=== PATIENT | male | born 1950 | race Caucasian/White ===

== ENCOUNTER 2017-10-06 18:05 | Emergency (ER) | payer BC ==
--- NOTE | 2017-10-06 19:18 | EDM.PDOC ---
ED HPI GENERAL MEDICAL PROBLEM - General Chief Complaint: Lower Extremity Injury/Pain Stated Complaint: PT HURT LT LEG Time Seen by Provider: 10/06/17 18:18 Source of Information: Reports: Patient History Limitations: Reports: No Limitations - History of Present Illness INITIAL COMMENTS - FREE TEXT/NARRATIVE: HISTORY AND PHYSICAL: History of present illness: Patient is a 67-year-old male who is brought to the emergency room with his with complaints of lower left extremity pain. He states that he has had weight bearing to the left lower extremity (anterior pearson) over the past several hours. He does have a history of chronic leg pain, arthritis and tendinitis. Patient states he has had pain to his left lower extremity before states today's feeling is different. He denies any injury or trauma. Does have a history of type 2 diabetes but does not have any neuropathies. He denies any numbness or tingling to the affected extremity. No erythema, swelling or soft tissue discomfort with palpation. Review of systems: As per history of present illness and below otherwise all systems reviewed and negative. Past medical history: As per history of present illness and as reviewed below otherwise noncontributory. Surgical history: As per history of present illness and as reviewed below otherwise noncontributory. Social history: No reported history of drug or alcohol abuse. Family history: As per history of present illness and as reviewed below otherwise noncontributory. Physical exam: General: Developed and well-nourished 67 showed male. Alert and oriented. Nontoxic appearing and in no acute distress. HEENT: Atraumatic, normocephalic, pupils equal and reactive bilaterally, negative for conjunctival pallor or scleral icterus, mucous membranes moist, throat clear, neck supple, nontender, trachea midline. No drooling or trismus noted. No meningeal signs Lungs: Clear to auscultation, breath sounds equal bilaterally, chest nontender. Heart: S1S2, regular rate and rhythm without overt murmur Abdomen: Soft, nondistended, obese, nontender. Negative for masses or hepatosplenomegaly. Negative for costovertebral tenderness. Pelvis: Stable nontender. Genitourinary: Deferred. Rectal: Deferred. Skin: Several superficial varicose veins to lower extremities bilaterally. Intact, warm, dry. No lesions or rashes noted. Extremities: Atraumatic, moves all extremities per self without difficulty or deficits, does have discomfort to his anterior pearson when bearing weight. Strong pedal pulses bilaterally. +CMS bilaterally. He is negative for cords or calf pain. Neurovascular unremarkable. Neuro: Awake, alert, oriented. Cranial nerves II through XII unremarkable. Cerebellum unremarkable. Motor and sensory unremarkable throughout. Exam nonfocal. Notes: X-ray shows no acute findings. His skin and presentation does not appear that this is a cellulitis. The limitation available to us through the emergency room. Cannot rule out any musculature, ligament or tendon involvement. Offered him crutches to help the nonweightbearing. Her symptoms follow-up with the orthopedic provider or his primary care provider in the next couple days. Supportive care measures were reviewed and discussed. He voices understanding and is agreeable to plan of care. He denies any further questions at this time. Diagnostics: X-ray Therapeutics: Crutches Impression: Left lower extremity pain Plan: 1. Rest, ice and elevate. You may use your crutches for nonweightbearing purposes in the next several days. 2. Tylenol and/or ibuprofen as needed for pain management. 3. Follow-up with the orthopedic provider for your primary care provider in the next few days, or sooner if needed. Return to the ED as needed and as discussed. Definitive disposition and diagnosis as appropriate pending reevaluation and review of above. Left Leg Pain Score (Numeric/FACES): 8 - Related Data Allergies Allergy/AdvReac Type Severity Reaction Status Date / Time No Known Allergies Allergy Verified 10/06/17 18:19 Home Meds: Home Meds Furosemide 40 mg PO DAILY PRN 04/28/15 [History] Insulin Aspart [Novolog Flexpen] 70 units SQ DAILY 04/28/15 [History] Insulin Glarg,Human.Rec.Analog [LantUS Solostar] 40 units SUBCUT BEDTIME [History] Metoprolol Tartrate [Lopressor] 50 mg PO ONETIME 04/28/15 [History] Pantoprazole Sodium 40 mg PO DAILY 04/28/15 [History] Potassium Chloride [K-Tab ER] 20 meq PO DAILY 04/28/15 [History] Ramipril [Altace] 2.5 mg PO DAILY 04/28/15 [History] Rivaroxaban [Xarelto] 20 mg PO DAILY 04/28/15 [History] Amiodarone [Cordarone] 200 mg PO DAILY 10/06/17 [History] Glimepiride 4 mg PO BID 10/06/17 [History] buPROPion HCl [Wellbutrin Xl] 300 mg PO DAILY 10/06/17 [History] Past Medical History HEENT History: Reports: Cataract, Impaired Vision Cardiovascular History: Reports: Blood Clots/VTE/DVT, Hypertension Other Cardiovascular History: pulmonary embolis Gastrointestinal History: Reports: GERD Musculoskeletal History: Reports: Arthritis Psychiatric History: Reports: Anxiety, Depression Endocrine/Metabolic History: Reports: Diabetes, Type II Dermatologic History: Reports: Eczema - Infectious Disease History Infectious Disease History: Reports: Chicken Pox, Measles, Shingles Social & Family History - Family History Family Medical History: Noncontributory - Tobacco Use Smoking Status *Q: Never Smoker Years of Tobacco use: 10 Packs/Tins Daily: 0.1 Second Hand Smoke Exposure: Yes - Caffeine Use Caffeine Use: Reports: Coffee, Tea - Recreational Drug Use Recreational Drug Use: No Review of Systems - Review of Systems Review Of Systems: ROS reveals no pertinent complaints other than HPI. ED EXAM, GENERAL - Physical Exam Exam: See Below (See dictation) Course - Vital Signs Last Recorded V/S: Last Vital Signs Temp 97.6 F 10/06/17 18:16 Pulse 52 L 10/06/17 18:16 Resp 18 10/06/17 18:16 BP 154/74 H 10/06/17 18:16 Pulse Ox 94 L 10/06/17 18:16 - Orders/Labs/Meds Orders: Active Orders 24 hr Category Date Time Status Tibia Fibula Lt [CR] Stat Exams 10/06/17 18:37 Ordered Departure - Departure Time of Disposition: 19:35 Disposition: Home, Self-Care 01 Clinical Impression: Left leg pain - Discharge Information Referrals: PCP,None [Primary Care Provider] - Forms: ED Department Discharge Additional Instructions: The following information is given to patients seen in the emergency department who are being discharged to home. This information is to outline your options for follow-up care. We provide all patients seen in our emergency department with a follow-up referral. The need for follow-up, as well as the timing and circumstances, are variable depending upon the specifics of your emergency department visit. If you don't have a primary care physician on staff, we will provide you with a referral. We always advise you to contact your personal physician following an emergency department visit to inform them of the circumstance of the visit and for follow-up with them and/or the need for any referrals to a consulting specialist. The emergency department will also refer you to a specialist when appropriate. This referral assures that you have the opportunity for follow-up care with a specialist. All of these measure are taken in an effort to provide you with optimal care, which includes your follow-up. Under all circumstances we always encourage you to contact your private physician who remains a resource for coordinating your care. When calling for follow-up care, please make the office aware that this follow-up is from your recent emergency room visit. If for any reason you are refused follow-up, please contact the [facility] Emergency Department at and asked to speak to the emergency department charge nurse. [facility] [address] [place] [id number] [facility] - [facility] [address] [place] [address], [address] [place] [address] 1. Rest, ice and elevate. You may use your crutches for nonweightbearing purposes over the next several days. 2. Tylenol and/or ibuprofen as needed for pain management. 3. Follow-up with the orthopedic provider for your primary care provider in the next few days, or sooner if needed. Return to the ED as needed and as discussed. - My Orders Last 24 Hours: My Active Orders 10/06/17 18:37 Tibia Fibula Lt [CR] Stat - Assessment/Plan Last 24 Hours: My Active Orders 10/06/17 18:37 Tibia Fibula Lt [CR] Stat
[2017-10-06 20:24] VITALS: BP 137/64
--- NOTE | 2017-10-07 14:54 | CR ---
EXAM DATE: 10/06/17 PATIENT'S AGE: 67 Patient: GRACIE ALVARADO Facility: [place], [place] Site . Site : 1950 Study: XRay Extremity Left tib/fib [id number] 7:10:33 PM Ordering Physician: Doctor Menjivar Final Report: INDICATION: Pain with weight-bearing, no history of trauma. TECHNIQUE: Two views left tibia and fibula COMPARISON: None FINDINGS: Bones: Alignment is normal. No fractures. Dorsal and plantar calcaneal spurs. Joint spaces: Narrowing and marginal osteophytes involving the medial compartment of the knee. Degenerative changes with narrowing patellofemoral compartment. Soft tissues: Unremarkable. IMPRESSION: Narrowing and marginal osteophytes involving the medial and patellofemoral compartments of the knee. Dictated by Sharan Corona MD @ 10/06/2017 7:32:22 PM Dictated by: Sharan Corona MD @ 10/06/2017 19:32:26 (Electronic Signature) Report Signed by Proxy. ESTEBAN
== END 2017-10-06 20:00 | disposition home or self-care (01) ==
LOC: MW.ED 18:05
DX: I83.93 Asymptomatic varicose veins of bilateral lower extremities (principal); E11.9 Type 2 diabetes mellitus without complications; I10 Essential (primary) hypertension; Z79.4 Long term (current) use of insulin; Z79.899 Other long term (current) drug therapy; Z77.22 Contact with and (suspected) exposure to environmental tobacco smoke (acute) (chronic)
CPT/HCPCS: 73590-26-LT; 73590-LT; 99283

== ENCOUNTER 2019-02-24 14:33 | Emergency (ER) | payer MEDICARE, BC ==
[2019-02-24 14:55] VITALS: BP 112/70; PULSE 76
[2019-02-24] MEDS ORDERED: cefTRIAXone 1 GM Vial IM ONE (15:02)
[2019-02-24] MEDS ORDERED: Sulfamethoxazole/Trimethoprim 800-160 MG Tab PO ONE (15:02)
[2019-02-24] MEDS ORDERED: Bacitracin Oint 1 GM U/D Packet TOP ONE (15:14)
[2019-02-24] MEDS ORDERED: Lidocaine 1% 4 ML ONE (15:16)
--- NOTE | 2019-02-24 15:17 | EDM.PDOC ---
ED HPI GENERAL MEDICAL PROBLEM - General Chief Complaint: Skin Complaint Stated Complaint: LEFT FOOT INFECTION Time Seen by Provider: 02/24/19 15:12 Source of Information: Reports: Patient - History of Present Illness INITIAL COMMENTS - FREE TEXT/NARRATIVE: HISTORY AND PHYSICAL: History of present illness: [Patient presents with multiple small abscesses he has one on his pubic area which has some redness and induration approximately the size of a quarter he has been applying pressure and draining some blood and exudate from the lesion, he has a second lesion on the anterior left thigh similar in description was able to express a very scant amount of exudate one or 2 drops as he has been draining at home no fever nausea vomiting chills sweats As his note describes a foot lesion however there is no foot lesion associated ] Review of systems: As per history of present illness and below otherwise all systems reviewed and negative. Past medical history: As per history of present illness and as reviewed below otherwise noncontributory. Surgical history: As per history of present illness and as reviewed below otherwise noncontributory. Social history: No reported history of drug or alcohol abuse. Family history: As per history of present illness and as reviewed below otherwise noncontributory. Physical exam: HEENT: Atraumatic, normocephalic, pupils reactive, negative for conjunctival pallor or scleral icterus, mucous membranes moist, throat clear, neck supple, nontender, trachea midline. Lungs: Clear to auscultation, breath sounds equal bilaterally, chest nontender. Heart: S1S2, regular, negative for clicks, rubs, or JVD. Abdomen: Soft, nondistended, nontender. Negative for masses or hepatosplenomegaly. Negative for costovertebral tenderness. Pelvis: Stable nontender. Genitourinary: Deferred. Rectal: Deferred. Extremities: Atraumatic, negative for cords or calf pain. Neurovascular unremarkable. Neuro: Awake, alert, oriented. Cranial nerves II through XII unremarkable. Cerebellum unremarkable. Motor and sensory unremarkable throughout. Exam nonfocal. Skin as per history of present illness otherwise unremarkable Diagnostics: [ wound culture left anterior thigh ] Therapeutics: [ Rocephin and Bactrim Bactrim double strength by mouth twice a day #20 no refill continue warm compress ] Impression: [ cellulitis with abscess,-auto drainage performed at home] Definitive disposition and diagnosis as appropriate pending reevaluation and review of above. - Related Data Allergies Allergy/AdvReac Type Severity Reaction Status Date / Time No Known Allergies Allergy Verified 10/06/17 18:19 Home Meds: Home Meds Insulin Aspart [Novolog Flexpen] 70 units SQ DAILY 04/28/15 [History] Insulin Glarg,Human.Rec.Analog [LantUS Solostar] 40 units SUBCUT BEDTIME [History] Metoprolol Tartrate [Lopressor] 50 mg PO ONETIME 04/28/15 [History] Pantoprazole Sodium 40 mg PO DAILY 04/28/15 [History] Ramipril [Altace] 2.5 mg PO DAILY 04/28/15 [History] Rivaroxaban [Xarelto] 20 mg PO DAILY 04/28/15 [History] Amiodarone [Cordarone] 200 mg PO DAILY 10/06/17 [History] buPROPion HCl [Wellbutrin Xl] 300 mg PO DAILY 10/06/17 [History] Acetaminophen [Tylenol Extra Strength] 1 g PO DAILY 02/24/19 [History] Empagliflozin [Jardiance] 25 mg PO DAILY 02/24/19 [History] Rosuvastatin [Crestor] 10 mg PO DAILY 02/24/19 [History] Semaglutide [Ozempic] 1 mg WEEKLY 02/24/19 [History] traMADol [Ultram] 50 mg PO DAILY 02/24/19 [History] Past Medical History HEENT History: Reports: Cataract, Impaired Vision Cardiovascular History: Reports: Blood Clots/VTE/DVT, Hypertension Other Cardiovascular History: pulmonary embolis Gastrointestinal History: Reports: GERD Musculoskeletal History: Reports: Arthritis Other Musculoskeletal History: knee pain Psychiatric History: Reports: Anxiety, Depression Endocrine/Metabolic History: Reports: Diabetes, Type II Dermatologic History: Reports: Eczema - Infectious Disease History Infectious Disease History: Reports: Chicken Pox, Measles, Shingles Social & Family History - Family History Family Medical History: Noncontributory - Tobacco Use Smoking Status *Q: Never Smoker - Caffeine Use Caffeine Use: Reports: Coffee, Tea - Recreational Drug Use Recreational Drug Use: No ED ROS GENERAL - Review of Systems Review Of Systems: See Below ED EXAM, SKIN/RASH Exam: See Below Course - Vital Signs Last Recorded V/S: Last Vital Signs Temp 96.9 F 02/24/19 14:53 Pulse 76 02/24/19 14:53 Resp 18 02/24/19 14:53 BP 112/70 02/24/19 14:53 Pulse Ox 96 02/24/19 14:53 - Orders/Labs/Meds Meds: Medications Discontinued Medications Generic Name Dose Route Start Last Admin Trade Name Nel PRN Reason Stop Dose Admin Ceftriaxone Sodium 1 gm 02/24/19 15:02 Rocephin IM 02/24/19 15:03 ONETIME ONE Trimethoprim/Sulfamethoxazole 1 tab 02/24/19 15:02 Septra Ds PO 02/24/19 15:03 ONETIME ONE Departure - Departure Time of Disposition: 15:15 Disposition: Home, Self-Care 01 Condition: Good Clinical Impression: Abscess, Cellulitis - Discharge Information Referrals: Asael Myers MD [Primary Care Provider] - Additional Instructions: Medication as prescribed Return if symptoms persist or worsen despite treatment continue with warm compress 2-3 times daily with each lesion follow with primary care in one week for recheck maintain tight glucose control [facility] - Primary Care [address] [place] [id number] The following information is given to patients seen in the emergency department who are being discharged to home. This information is to outline your options for follow-up care. We provide all patients seen in our emergency department with a follow-up referral. The need for follow-up, as well as the timing and circumstances, are variable depending upon the specifics of your emergency department visit. If you don't have a primary care physician on staff, we will provide you with a referral. We always advise you to contact your personal physician following an emergency department visit to inform them of the circumstance of the visit and for follow-up with them and/or the need for any referrals to a consulting specialist. The emergency department will also refer you to a specialist when appropriate. This referral assures that you have the opportunity for follow-up care with a specialist. All of these measure are taken in an effort to provide you with optimal care, which includes your follow-up. Under all circumstances we always encourage you to contact your private physician who remains a resource for coordinating your care. When calling for follow-up care, please make the office aware that this follow-up is from your recent emergency room visit. If for any reason you are refused follow-up, please contact the [facility] emergency department at and asked to speak to the emergency department charge nurse.
== END 2019-02-24 15:50 | disposition home or self-care (01) ==
LOC: MW.ED 14:33 → EEVIPCON 14:33 → MW.ED 15:50
DX: N49.9 Inflammatory disorder of unspecified male genital organ (principal); L02.415 Cutaneous abscess of right lower limb; L03.116 Cellulitis of left lower limb; E11.9 Type 2 diabetes mellitus without complications; I10 Essential (primary) hypertension; K21.9 Gastro-esophageal reflux disease without esophagitis; F41.9 Anxiety disorder, unspecified; F32.9 Major depressive disorder, single episode, unspecified; Z79.4 Long term (current) use of insulin; Z79.899 Other long term (current) drug therapy
CPT/HCPCS: 87070; 96372; 99283; A9270; J0696; 87077; 87186

== ENCOUNTER 2019-03-05 15:32 | Emergency (ER) | payer MEDICARE, BC ==
[2019-03-05 15:53] VITALS: BP 112/55; PULSE 52
--- NOTE | 2019-03-05 16:33 | EDM.PDOC ---
ED HPI GENERAL MEDICAL PROBLEM - General Chief Complaint: Skin Complaint Stated Complaint: LEFT FOOT Time Seen by Provider: 03/05/19 16:28 Source of Information: Reports: Patient - History of Present Illness INITIAL COMMENTS - FREE TEXT/NARRATIVE: HISTORY AND PHYSICAL: History of present illness: Patient presents for abscess type lesions, have seen him approximately 10 days ago for similar His note again says left foot lesion however he does not have any problem with his left foot his left thigh is involved with a small quarter-sized abscess was drained there is persistent induration however no fluctuance He does have an area in the left groin/pubic region that is also drained there is continued induration however size is decreasing his diabetic and have him follow-up with general surgery to evaluate this lesion and follow As no fever nausea vomiting chills sweats ] Review of systems: As per history of present illness and below otherwise all systems reviewed and negative. Past medical history: As per history of present illness and as reviewed below otherwise noncontributory. Surgical history: As per history of present illness and as reviewed below otherwise noncontributory. Social history: No reported history of drug or alcohol abuse. Family history: As per history of present illness and as reviewed below otherwise noncontributory. Physical exam: HEENT: Atraumatic, normocephalic, pupils reactive, negative for conjunctival pallor or scleral icterus, mucous membranes moist, throat clear, neck supple, nontender, trachea midline. Lungs: Clear to auscultation, breath sounds equal bilaterally, chest nontender. Heart: S1S2, regular, negative for clicks, rubs, or JVD. Abdomen: Soft, nondistended, nontender. Negative for masses or hepatosplenomegaly. Negative for costovertebral tenderness. Pelvis: Stable nontender. Genitourinary: Deferred. Rectal: Deferred. Extremities: Atraumatic, negative for cords or calf pain. Neurovascular unremarkable. Neuro: Awake, alert, oriented. Cranial nerves II through XII unremarkable. Cerebellum unremarkable. Motor and sensory unremarkable throughout. Exam nonfocal. Diagnostics: [Clinical Staph aureus was grown out from previous culture ] Therapeutics: [ Bactrim double strength #20 Follow-up with general surgery ER referral provided ] Impression: [ abscess post drainage Persistent cellulitis scant exudates and induration persists] Definitive disposition and diagnosis as appropriate pending reevaluation and review of above. - Related Data Allergies Allergy/AdvReac Type Severity Reaction Status Date / Time No Known Allergies Allergy Verified 10/06/17 18:19 Home Meds: Home Meds Insulin Aspart [Novolog Flexpen] 13 units SQ DAILY 04/28/15 [History] Insulin Glarg,Human.Rec.Analog [LantUS Solostar] 51 units SUBCUT BEDTIME [History] Metoprolol Tartrate [Lopressor] 50 mg PO ONETIME 04/28/15 [History] Pantoprazole Sodium 40 mg PO DAILY 04/28/15 [History] Ramipril [Altace] 2.5 mg PO DAILY 04/28/15 [History] Rivaroxaban [Xarelto] 20 mg PO DAILY 04/28/15 [History] Amiodarone [Cordarone] 100 mg PO DAILY 10/06/17 [History] buPROPion HCl [Wellbutrin Xl] 300 mg PO DAILY 10/06/17 [History] Acetaminophen [Tylenol Extra Strength] 1 g PO DAILY 02/24/19 [History] Empagliflozin [Jardiance] 25 mg PO DAILY 02/24/19 [History] Rosuvastatin [Crestor] 10 mg PO DAILY 02/24/19 [History] Semaglutide [Ozempic] 1 mg WEEKLY 02/24/19 [History] traMADol [Ultram] 50 mg PO DAILY 02/24/19 [History] Sulfamethoxazole/Trimethoprim [Bactrim Ds Tablet] 03/05/19 [History] Past Medical History HEENT History: Reports: Cataract, Impaired Vision Cardiovascular History: Reports: Blood Clots/VTE/DVT, Hypertension Other Cardiovascular History: pulmonary embolis Gastrointestinal History: Reports: GERD Musculoskeletal History: Reports: Arthritis Other Musculoskeletal History: knee pain Psychiatric History: Reports: Anxiety, Depression Endocrine/Metabolic History: Reports: Diabetes, Type II Dermatologic History: Reports: Eczema - Infectious Disease History Infectious Disease History: Reports: Chicken Pox, Measles, Shingles Social & Family History - Family History Family Medical History: Noncontributory - Tobacco Use Smoking Status *Q: Former Smoker Used Tobacco, but Quit: Yes Month/Year Tobacco Last Used: 06/2014 - Caffeine Use Caffeine Use: Reports: Coffee, Tea - Recreational Drug Use Recreational Drug Use: No ED ROS GENERAL - Review of Systems Review Of Systems: See Below ED EXAM, SKIN/RASH Exam: See Below Course - Vital Signs Last Recorded V/S: Last Vital Signs Temp 98 F 03/05/19 15:50 Pulse 52 L 03/05/19 15:50 Resp 18 03/05/19 15:50 BP 112/55 L 03/05/19 15:50 Pulse Ox 96 03/05/19 15:50 Departure - Departure Time of Disposition: 16:33 Disposition: Home, Self-Care 01 Condition: Good Clinical Impression: Cellulitis - Discharge Information Referrals: Asael Myers MD [Primary Care Provider] - Additional Instructions: Medication as prescribed Return if symptoms persist or worsen or fever nausea vomiting chills sweats should develop Follow-up with general surgery, ER referral for next Tuesday [facility] [address], [address] [place] [address] The following information is given to patients seen in the emergency department who are being discharged to home. This information is to outline your options for follow-up care. We provide all patients seen in our emergency department with a follow-up referral. The need for follow-up, as well as the timing and circumstances, are variable depending upon the specifics of your emergency department visit. If you don't have a primary care physician on staff, we will provide you with a referral. We always advise you to contact your personal physician following an emergency department visit to inform them of the circumstance of the visit and for follow-up with them and/or the need for any referrals to a consulting specialist. The emergency department will also refer you to a specialist when appropriate. This referral assures that you have the opportunity for follow-up care with a specialist. All of these measure are taken in an effort to provide you with optimal care, which includes your follow-up. Under all circumstances we always encourage you to contact your private physician who remains a resource for coordinating your care. When calling for follow-up care, please make the office aware that this follow-up is from your recent emergency room visit. If for any reason you are refused follow-up, please contact the [facility] emergency department at and asked to speak to the emergency department charge nurse.
== END 2019-03-05 16:43 | disposition home or self-care (01) ==
LOC: MW.ED 15:32
DX: L02.416 Cutaneous abscess of left lower limb (principal); L02.214 Cutaneous abscess of groin; L03.116 Cellulitis of left lower limb; L03.314 Cellulitis of groin; I10 Essential (primary) hypertension; E11.9 Type 2 diabetes mellitus without complications; K21.9 Gastro-esophageal reflux disease without esophagitis; F41.9 Anxiety disorder, unspecified; F32.9 Major depressive disorder, single episode, unspecified; M19.90 Unspecified osteoarthritis, unspecified site; Z86.718 Personal history of other venous thrombosis and embolism; Z87.891 Personal history of nicotine dependence; Z79.4 Long term (current) use of insulin; Z79.899 Other long term (current) drug therapy
CPT/HCPCS: 99282

== ENCOUNTER 2020-03-05 05:49 | Emergency (ER) | payer MEDICARE, BC ==
--- NOTE | 2020-03-05 06:07 | EDM.PDOC ---
<Jimmy Garcia - Last Filed: 03/05/20 06:03> ED HPI GENERAL MEDICAL PROBLEM - General Chief Complaint: Abdominal Pain Stated Complaint: LOWER ABDOMINAL PAIN Time Seen by Provider: 03/05/20 06:00 - History of Present Illness INITIAL COMMENTS - FREE TEXT/NARRATIVE: HISTORY AND PHYSICAL: History of present illness: This 69-year-old male presents emergency department without a previous history of abdominal surgery complaining of generalized abdominal pain that he rates as moderate to severe. He states that it first began in the left lower quadrant and now feels more on the right upper quadrant. Denies any nausea or vomiting. No hematemesis or hematochezia. No diarrhea. Does have a very strong hard bowel movements and some constipation. Denies any other signs or symptoms. No other modifying, aggravating or alleviating Review of systems: A 10-point review of systems, other than pertinent positives and negatives as stated per HPI, is otherwise negative. Past medical history: As per history of present illness and as reviewed below otherwise noncontributory. Surgical history: As per history of present illness and as reviewed below otherwise noncontributory. Social history: No reported history of drug or alcohol abuse. Family history: As per history of present illness and as reviewed below otherwise noncontributory. Physical exam: VITAL SIGNS: Reviewed. GENERAL: In no apparent distress. HEAD: No signs of head trauma. EYES: Pupils are equal. Extraocular motions intact. EARS: Hearing grossly intact. MOUTH: Oropharynx is normal. NECK: No adenopathy, no JVD. CHEST: Chest with clear breath sounds bilaterally. No wheezes, rales, or rhonchi. CARDIAC: Regular rate and rhythm. Normal S1 and S2, without murmurs, gallops, or rubs. VASCULAR: Peripheral pulses normal and equal in all extremities. ABDOMEN: Soft, complains of diffuse tenderness that is mild, no rebound or guarding, no pulsatile masses or other masses noted. MUSCULOSKELETAL: Good range of motion of all major joints. Extremities without clubbing, cyanosis or edema. NEUROLOGIC EXAM: Alert and oriented x 3. No focal sensory or motor deficits. Speech normal. Follows commands. PSYCHIATRIC: Mood normal. SKIN: No rash or lesions. Initial Differential Diagnosis & Plan: The differential diagnosis would include appendicitis, cholecystitis, pyelonephritis, pancreatitis, mesenteric infarction, diverticulitis, small bowel obstruction, volvulus, and ACS. Given the presentation I will obtain labs, CT of the abdomen pelvis, and reevaluate. Definitive disposition and diagnosis as appropriate pending reevaluation and review of above. - Related Data Allergies Allergy/AdvReac Type Severity Reaction Status Date / Time No Known Allergies Allergy Verified 03/05/20 06:01 Home Meds: Home Meds Insulin Aspart [Novolog Flexpen] 50 units SQ DAILY 04/28/15 [History] Insulin Glarg,Human.Rec.Analog [LantUS Solostar] 49 units SUBCUT BEDTIME 04/28/15 [History] Metoprolol Tartrate [Lopressor] 25 mg PO ONETIME 04/28/15 [History] Pantoprazole Sodium 40 mg PO DAILY 04/28/15 [History] Ramipril [Altace] 2.5 mg PO DAILY 04/28/15 [History] Rivaroxaban [Xarelto] 20 mg PO DAILY 04/28/15 [History] Amiodarone [Cordarone] 100 mg PO DAILY 10/06/17 [History] buPROPion HCL [Wellbutrin Xl] 300 mg PO DAILY 10/06/17 [History] Empagliflozin [Jardiance] 25 mg PO DAILY 02/24/19 [History] Semaglutide [Ozempic] 1 mg WEEKLY 02/24/19 [History] traMADol [Ultram] 50 mg PO DAILY PRN 02/24/19 [History] Acetaminophen [Tylenol] 1,000 mg PO DAILY PRN 03/05/20 [History] Cholecalciferol (Vitamin D3) [Vitamin D3] 1,000 unit PO DAILY 03/05/20 [History] Furosemide [Lasix] 40 mg PO DAILY 03/05/20 [History] Latanoprost [Xalatan] 1 drop EYEBOTH BEDTIME 03/05/20 [History] Potassium Citrate [Potassium Citrate ER] 20 meq PO DAILY 03/05/20 [History] Pravastatin [Pravachol] 40 mg PO DAILY 03/05/20 [History] Prednisolone Acetate/Pf [Prednisolone Acet 1% Eye Drop] 1 drop EARBOTH DAILY 03/05/20 [History] Ramipril [Altace] 2.5 mg PO DAILY 03/05/20 [History] polyethylene glycoL 3350 [MiraLAX] 17 gm PO DAILY #238 g 03/05/20 [Rx] Past Medical History HEENT History: Reports: Cataract, Impaired Vision Cardiovascular History: Reports: Blood Clots/VTE/DVT, Hypertension Other Cardiovascular History: pulmonary embolis Gastrointestinal History: Reports: GERD Musculoskeletal History: Reports: Arthritis Other Musculoskeletal History: knee pain Psychiatric History: Reports: Anxiety, Depression Endocrine/Metabolic History: Reports: Diabetes, Type II Dermatologic History: Reports: Eczema - Infectious Disease History Infectious Disease History: Reports: Chicken Pox, Measles, Shingles Social & Family History - Family History Family Medical History: Noncontributory - Caffeine Use Caffeine Use: Reports: Coffee, Tea Departure - Departure Disposition: Home, Self-Care 01 Clinical Impression: Constipation Qualifiers: Constipation type: unspecified constipation type Qualified Code(s): K59.00 - Constipation, unspecified - Discharge Information Prescriptions: polyethylene glycoL 3350 [MiraLAX] 17 gm PO DAILY #238 g Instructions: Constipation, Adult Referrals: Asael Myers MD [Primary Care Provider] - Forms: ED Department Discharge Additional Instructions: The following information is given to patients seen in the emergency department who are being discharged to home. This information is to outline your options for follow-up care. We provide all patients seen in our emergency department with a follow-up referral. The need for follow-up, as well as the timing and circumstances, are variable depending upon the specifics of your emergency department visit. If you don't have a primary care physician on staff, we will provide you with a referral. We always advise you to contact your personal physician following an emergency department visit to inform them of the circumstance of the visit and for follow-up with them and/or the need for any referrals to a consulting specialist. The emergency department will also refer you to a specialist when appropriate. This referral assures that you have the opportunity for follow-up care with a specialist. All of these measure are taken in an effort to provide you with optimal care, which includes your follow-up. Under all circumstances we always encourage you to contact your private physician who remains a resource for coordinating your care. When calling for follow-up care, please make the office aware that this follow-up is from your recent emergency room visit. If for any reason you are refused follow-up, please contact the [facility] Emergency Department at and asked to speak to the emergency department charge nurse. Please follow up with your primary care physician. If you do not have a primary care physician, see below: [facility] [address] [place] [address] [facility] [address] [place], [place] [id number] <Bryan Corona - Last Filed: 03/05/20 07:31> ED ROS GENERAL - Review of Systems Review Of Systems: See Below ED EXAM, GI/ABD - Physical Exam Exam: See Below Course - Vital Signs Last Recorded V/S: Last Vital Signs Temp 97.6 F 03/05/20 06:00 Pulse 60 03/05/20 06:52 Resp 16 03/05/20 06:52 BP 114/72 03/05/20 06:52 Pulse Ox 95 03/05/20 06:52 - Orders/Labs/Meds Labs: Laboratory Tests 03/05/20 03/05/20 03/05/20 Range/Units 06:02 06:05 06:05 WBC 10.47 (4.0-11.0) K/uL RBC 5.01 (4.50-5.90) M/uL Hgb 16.4 (13.0-17.0) g/dL Hct 48.5 (38.0-50.0) % MCV 96.8 (80.0-98.0) fL MCH 32.7 H (27.0-32.0) pg MCHC 33.8 (31.0-37.0) g/dL RDW Std Deviation 48.3 (28.0-62.0) fl RDW Coeff of Cindi 14 (11.0-15.0) % Plt Count 198 (150-400) K/uL MPV 11.50 (7.40-12.00) fL Neut % (Auto) 64.4 (48.0-80.0) % Lymph % (Auto) 16.6 (16.0-40.0) % [place] % (Auto) 14.2 (0.0-15.0) % Eos % (Auto) 4.3 (0.0-7.0) % Baso % (Auto) 0.5 (0.0-1.5) % Neut # (Auto) 6.7 H (1.4-5.7) K/uL Lymph # (Auto) 1.7 (0.6-2.4) K/uL [place] # (Auto) 1.5 H (0.0-0.8) K/uL Eos # (Auto) 0.5 (0.0-0.7) K/uL Baso # (Auto) 0.1 (0.0-0.1) K/uL Nucleated RBC % 0.0 /100WBC Nucleated RBCs # 0 K/uL Sodium 137 (136-148) mmol/L Potassium 4.8 (3.5-5.1) mmol/L Chloride 102 (98-107) mmol/L Carbon Dioxide 28.1 (21.0-32.0) mmol/L BUN 20 H (7.0-18.0) mg/dL Creatinine 0.8 (0.8-1.3) mg/dL Est Cr Clr Drug Dosing 97.00 mL/min Estimated GFR (MDRD) > 60.0 ml/min Glucose 78 (74-106) mg/dL Calcium 8.6 (8.5-10.1) mg/dL Total Bilirubin 1.0 (0.2-1.0) mg/dL AST 45 H (15-37) IU/L ALT 44 (14-63) IU/L Alkaline Phosphatase 105 (46-116) U/L Troponin I < 0.050 (0.000-0.056) ng/mL Total Protein 7.9 (6.4-8.2) g/dL Albumin 3.4 (3.4-5.0) g/dL Globulin 4.5 H (2.6-4.0) g/dL Albumin/Globulin Ratio 0.8 L (0.9-1.6) Lipase 89 (73-393) U/L Urine Color YELLOW Urine Appearance CLEAR Urine pH 6.0 (5.0-8.0) Ur Specific [place] 1.020 (1.001-1.035) Urine Protein NEGATIVE (NEGATIVE) mg/dL Urine Glucose (UA) >=1000 (NEGATIVE) mg/dL Urine Ketones NEGATIVE (NEGATIVE) mg/dL Urine Occult Blood NEGATIVE (NEGATIVE) Urine Nitrite NEGATIVE (NEGATIVE) Urine Bilirubin NEGATIVE (NEGATIVE) Urine Urobilinogen 0.2 (<2.0) EU/dL Ur Leukocyte Esterase NEGATIVE (NEGATIVE) - Re-Assessments/Exams Free Text/Narrative Re-Assessment/Exam: 03/05/20 07:00 Care transitioned from night-team ED physician Dr. Peña pending CT imaging results. 03/05/20 07:25 CT unremarkable for emergent intraabdominal pathology; is notable for heavy colonic stool burden. Will d/c with bowel regimen and PMD f/u. Departure - Departure Time of Disposition: 07:27 Condition: Good Sepsis Event Note (ED) - Focused Exam Vital Signs: Vital Signs Temp Pulse Resp BP Pulse Ox 03/05/20 06:52 60 16 114/72 95 03/05/20 06:00 97.6 F 67 18 128/70 99
[2020-03-05 06:38] LABS: BLOOD UREA NITROGEN,BUN 20 mg/dL (7.0-18.0); CARBON DIOXIDE,CO2 28.1 mmol/L (21.0-32.0); CHLORIDE,CL 102 mmol/L (98-107); GLUCOSE RANDOM 78 mg/dL (74-106); LIPASE 89 U/L (73-393); POTASSIUM,K 4.8 mmol/L (3.5-5.1); SODIUM,NA 137 mmol/L (136-148)
--- NOTE | 2020-03-05 07:24 | CT ---
INDICATION: Abdominal pain. Initially on left side but now on the right side. TECHNIQUE: CT of the abdomen and pelvis without intravenous contrast. Coronal and sagittal reconstructions. COMPARISON: None. FINDINGS: The unenhanced liver, gallbladder, pancreas, and adrenal glands are normal in appearance. Tiny amount of cholelithiasis without evidence of gallbladder inflammation. No hydronephrosis. No urinary calculi. The bladder is normal in appearance. Mildly enlarged prostate. Bilateral fat containing inguinal hernias. No bowel dilation. Moderate amount of stool in the cecum and ascending colon. Negative appendix. No intraperitoneal free air or fluid. Mild vascular calcifications. No lymphadenopathy. Mild degenerative changes of the spine. Mild retrolisthesis of L5 on S1. There is soft tissue thickening anterior to the T9 and T10 vertebral bodies (series 201, image 12 and series 204, image 76). Findings are of uncertain significance but could represent discitis. There is no associated osseous abnormality other than hypertrophic changes. Trace right pleural effusion. Mild bibasilar atelectasis. IMPRESSION: 1. Soft tissue thickening anterior to the T9 and T10 vertebral bodies is of uncertain significance but could represent discitis. Correlate for any tenderness in this region. 2. No other acute findings in the abdomen or pelvis on this noncontrast exam. 3. Moderate amount of stool in the cecum and ascending colon. 4. Trace right pleural effusion. Please note that all CT scans at this facility use dose modulation, iterative reconstruction, and/or weight-based dosing when appropriate to reduce radiation dose to as low as reasonably achievable. Dictated by Kerry Braswell MD @ Mar 05 2020 7:11AM Signed by Dr. Kerry Braswell @ Mar 05 2020 7:23AM
[2020-03-05 07:45] VITALS: BP 105/61; PULSE 56
== END 2020-03-05 07:40 | disposition home or self-care (01) ==
LOC: MW.ED 05:49
DX: K59.00 Constipation, unspecified (principal); I10 Essential (primary) hypertension; K21.9 Gastro-esophageal reflux disease without esophagitis; E11.9 Type 2 diabetes mellitus without complications; F41.9 Anxiety disorder, unspecified; F32.9 Major depressive disorder, single episode, unspecified; Z79.4 Long term (current) use of insulin; Z79.899 Other long term (current) drug therapy; Z86.711 Personal history of pulmonary embolism; Z86.718 Personal history of other venous thrombosis and embolism; Z79.01 Long term (current) use of anticoagulants
CPT/HCPCS: 36415; 74176; 74176-26; 80053; 81003; 83690; 84484; 85025; 99284-25

== ENCOUNTER 2020-03-09 13:12 | Emergency (ER) | payer MEDICARE, BC ==
--- NOTE | 2020-03-09 13:40 | EDM.PDOC ---
ED HPI GENERAL MEDICAL PROBLEM - General Chief Complaint: ENT Problem Stated Complaint: NASAL INFECTION Time Seen by Provider: 03/09/20 13:14 Source of Information: Reports: Patient History Limitations: Reports: No Limitations - History of Present Illness INITIAL COMMENTS - FREE TEXT/NARRATIVE: Patient presents with redness around his nose which is typical of his MRSA infections. Started yesterday. Mildly painful. No discharge or purulent drainage. No fevers or systemic symptoms. - Related Data Allergies Allergy/AdvReac Type Severity Reaction Status Date / Time No Known Allergies Allergy Verified 03/09/20 13:33 Home Meds: Home Meds Insulin Aspart [Novolog Flexpen] 50 units SQ DAILY 04/28/15 [History] Insulin Glarg,Human.Rec.Analog [LantUS Solostar] 49 units SUBCUT BEDTIME 04/28/15 [History] Metoprolol Tartrate [Lopressor] 25 mg PO ONETIME 04/28/15 [History] Pantoprazole Sodium 40 mg PO DAILY 04/28/15 [History] Ramipril [Altace] 2.5 mg PO DAILY 04/28/15 [History] Rivaroxaban [Xarelto] 20 mg PO DAILY 04/28/15 [History] Amiodarone [Cordarone] 100 mg PO DAILY 10/06/17 [History] buPROPion HCL [Wellbutrin Xl] 300 mg PO DAILY 10/06/17 [History] Empagliflozin [Jardiance] 25 mg PO DAILY 02/24/19 [History] Semaglutide [Ozempic] 1 mg WEEKLY 02/24/19 [History] traMADol [Ultram] 50 mg PO DAILY PRN 02/24/19 [History] Acetaminophen [Tylenol] 1,000 mg PO DAILY PRN 03/05/20 [History] Cholecalciferol (Vitamin D3) [Vitamin D3] 1,000 unit PO DAILY 03/05/20 [History] Furosemide [Lasix] 40 mg PO DAILY 03/05/20 [History] Latanoprost [Xalatan] 1 drop EYEBOTH BEDTIME 03/05/20 [History] Potassium Citrate [Potassium Citrate ER] 20 meq PO DAILY 03/05/20 [History] Pravastatin [Pravachol] 40 mg PO DAILY 03/05/20 [History] Prednisolone Acetate/Pf [Prednisolone Acet 1% Eye Drop] 1 drop EARBOTH DAILY 03/05/20 [History] Ramipril [Altace] 2.5 mg PO DAILY 03/05/20 [History] polyethylene glycoL 3350 [MiraLAX] 17 gm PO DAILY #238 g 03/05/20 [Rx] Sulfamethoxazole/Trimethoprim [Bactrim Ds Tablet] 1 each PO BID 14 Days #28 tablet 03/09/20 [Rx] Past Medical History HEENT History: Reports: Cataract, Impaired Vision Cardiovascular History: Reports: Blood Clots/VTE/DVT, Hypertension Other Cardiovascular History: pulmonary embolis Respiratory History: Reports: None Gastrointestinal History: Reports: GERD Genitourinary History: Reports: None Musculoskeletal History: Reports: Arthritis Other Musculoskeletal History: knee pain Neurological History: Reports: None Psychiatric History: Reports: Anxiety, Depression Endocrine/Metabolic History: Reports: Diabetes, Type II Insulin Pump Model and Intensivist: None Hematologic History: Reports: None Immunologic History: Reports: None Oncologic (Cancer) History: Reports: None Dermatologic History: Reports: Eczema - Infectious Disease History Infectious Disease History: Reports: Chicken Pox, MRSA, Shingles - Past Surgical History Head Surgeries/Procedures: Reports: None Social & Family History - Family History Family Medical History: Noncontributory - Caffeine Use Caffeine Use: Reports: Coffee, Tea ED ROS GENERAL - Review of Systems Review Of Systems: Comprehensive ROS is negative, except as noted in HPI. ED EXAM, GENERAL - Physical Exam Exam: See Below Exam Limited By: No Limitations General Appearance: Alert, WD/WN, No Apparent Distress Ears: Normal External Exam Nose: Normal Mucosa, No Blood, Other (mild erythema/warmth and TTP) Head: Atraumatic, Normocephalic Neck: Normal Inspection Respiratory/Chest: No Respiratory Distress, No Accessory Muscle Use Extremities: Normal Inspection Neurological: Alert, Normal Gait Psychiatric: Normal Affect, Normal Mood Skin Exam: Warm, Dry, Intact Course - Vital Signs Last Recorded V/S: Last Vital Signs Temp 96.1 F L 03/09/20 13:29 Pulse 49 L 03/09/20 13:56 Resp 16 03/09/20 13:56 BP 108/70 03/09/20 13:56 Pulse Ox 95 03/09/20 13:56 - Re-Assessments/Exams Free Text/Narrative Re-Assessment/Exam: 03/09/20 14:00 Will d/c with 2-week rx for bactrim which has helped patient in past with MRSA infection of nares. He will f/u with his doctor this week or next week at latest. Departure - Departure Time of Disposition: 13:40 Disposition: Home, Self-Care 01 Condition: Good Clinical Impression: MRSA (methicillin resistant Staphylococcus aureus) infection - Discharge Information Prescriptions: Sulfamethoxazole/Trimethoprim [Bactrim Ds Tablet] 1 each PO BID 14 Days #28 tablet Instructions: MRSA Infection, Self-Care, Adult Referrals: Asael Myers MD [Primary Care Provider] - Forms: ED Department Discharge Additional Instructions: The following information is given to patients seen in the emergency department who are being discharged to home. This information is to outline your options for follow-up care. We provide all patients seen in our emergency department with a follow-up referral. The need for follow-up, as well as the timing and circumstances, are variable depending upon the specifics of your emergency department visit. If you don't have a primary care physician on staff, we will provide you with a referral. We always advise you to contact your personal physician following an emergency department visit to inform them of the circumstance of the visit and for follow-up with them and/or the need for any referrals to a consulting specialist. The emergency department will also refer you to a specialist when appropriate. This referral assures that you have the opportunity for follow-up care with a specialist. All of these measure are taken in an effort to provide you with optimal care, which includes your follow-up. Under all circumstances we always encourage you to contact your private physician who remains a resource for coordinating your care. When calling for follow-up care, please make the office aware that this follow-up is from your recent emergency room visit. If for any reason you are refused follow-up, please contact the [facility] Emergency Department at and asked to speak to the emergency department charge nurse. Please follow up with your primary care physician. If you do not have a primary care physician, see below: [facility] [address] [place] [id number] [facility] [address] [place] [id number] Sepsis Event Note (ED) - Evaluation Sepsis Screening Result: No Definite Risk - Focused Exam Vital Signs: Vital Signs Temp Pulse Resp BP Pulse Ox 03/09/20 13:56 49 L 16 108/70 95 03/09/20 13:29 96.1 F L 54 L 16 126/70 95
[2020-03-09 13:56] VITALS: BP 108/70; PULSE 49
== END 2020-03-09 13:56 | disposition home or self-care (01) ==
LOC: MW.ED 13:12
DX: A49.02 Methicillin resistant Staphylococcus aureus infection, unspecified site (principal); I10 Essential (primary) hypertension; K21.9 Gastro-esophageal reflux disease without esophagitis; F41.9 Anxiety disorder, unspecified; F32.9 Major depressive disorder, single episode, unspecified; E11.9 Type 2 diabetes mellitus without complications; Z79.01 Long term (current) use of anticoagulants; Z79.4 Long term (current) use of insulin; Z79.899 Other long term (current) drug therapy; Z86.718 Personal history of other venous thrombosis and embolism; Z86.711 Personal history of pulmonary embolism
CPT/HCPCS: 99282; 99283

== ENCOUNTER 2020-07-03 16:51 | Emergency (ER) | payer MEDICARE, BC ==
--- NOTE | 2020-07-03 17:06 | EDM.PDOC ---
ED HPI GENERAL MEDICAL PROBLEM - General Chief Complaint: Lower Extremity Injury/Pain Stated Complaint: LEFT FOOT TOE INFECTION Time Seen by Provider: 07/03/20 16:53 Source of Information: Reports: Patient History Limitations: Reports: No Limitations - History of Present Illness INITIAL COMMENTS - FREE TEXT/NARRATIVE: Patient is a 69-year-old male with a past medical history of diabetes, left lower extremity diabetic foot wound, CHF, A. fib on Xarelto presenting for left lower extremity diabetic foot wound. Patient first noted erythema of his left fourth toe 2 days ago. It seems like the erythema has worsened today. He denies any drainage, pain. He denies any systemic symptoms, denies fever, nausea, vomiting. He does note some swelling in his bilateral lower extremities and notes that he has been sleeping sitting up recently and thinks this is why his feet are swelling. He does have a primary care physician that he can follow-up with. - Related Data Allergies Allergy/AdvReac Type Severity Reaction Status Date / Time No Known Allergies Allergy Verified 07/03/20 17:14 Home Meds: Home Meds Insulin Aspart [Novolog Flexpen] 50 units SQ DAILY 04/28/15 [History] Insulin Glarg,Human.Rec.Analog [LantUS Solostar] 49 units SUBCUT BEDTIME 04/28/15 [History] Metoprolol Tartrate [Lopressor] 25 mg PO ONETIME 04/28/15 [History] Pantoprazole Sodium 40 mg PO DAILY 04/28/15 [History] Ramipril [Altace] 2.5 mg PO DAILY 04/28/15 [History] Rivaroxaban [Xarelto] 20 mg PO DAILY 04/28/15 [History] Amiodarone [Cordarone] 100 mg PO DAILY 10/06/17 [History] buPROPion HCL [Wellbutrin Xl] 300 mg PO DAILY 10/06/17 [History] Empagliflozin [Jardiance] 25 mg PO DAILY 02/24/19 [History] Semaglutide [Ozempic] 1 mg WEEKLY 02/24/19 [History] traMADol [Ultram] 50 mg PO DAILY PRN 02/24/19 [History] Acetaminophen [Tylenol] 1,000 mg PO DAILY PRN 03/05/20 [History] Cholecalciferol (Vitamin D3) [Vitamin D3] 1,000 unit PO DAILY 03/05/20 [History] Furosemide [Lasix] 40 mg PO DAILY 03/05/20 [History] Latanoprost [Xalatan] 1 drop EYEBOTH BEDTIME 03/05/20 [History] Potassium Citrate [Potassium Citrate ER] 20 meq PO DAILY 03/05/20 [History] Pravastatin [Pravachol] 40 mg PO DAILY 03/05/20 [History] Prednisolone Acetate/Pf [Prednisolone Acet 1% Eye Drop] 1 drop EARBOTH DAILY 03/05/20 [History] Ramipril [Altace] 2.5 mg PO DAILY 03/05/20 [History] polyethylene glycoL 3350 [MiraLAX] 17 gm PO DAILY #238 g 03/05/20 [Rx] Sulfamethoxazole/Trimethoprim [Bactrim Ds Tablet] 1 each PO BID 14 Days #28 tablet 03/09/20 [Rx] clindamycin HCL [Clindamycin HCl] 150 mg PO TID 14 Days #126 capsule 07/03/20 [Rx] Past Medical History HEENT History: Reports: Cataract, Impaired Vision Cardiovascular History: Reports: Blood Clots/VTE/DVT, Hypertension Other Cardiovascular History: pulmonary embolis Respiratory History: Reports: None Gastrointestinal History: Reports: GERD Genitourinary History: Reports: None Musculoskeletal History: Reports: Arthritis Other Musculoskeletal History: knee pain Neurological History: Reports: None Psychiatric History: Reports: Anxiety, Depression Endocrine/Metabolic History: Reports: Diabetes, Type II 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 ED EXAM, GENERAL - Physical Exam Exam: See Below Exam Limited By: No Limitations General Appearance: Alert, WD/WN, No Apparent Distress Ears: Normal External Exam Throat/Mouth: Normal Voice, No Airway Compromise, Perioral Cyanosis Head: Atraumatic Neck: Normal Inspection Respiratory/Chest: No Respiratory Distress, No Accessory Muscle Use Cardiovascular: Normal Peripheral Pulses, Regular Rate, Rhythm Extremities: Normal Inspection Neurological: Alert Psychiatric: Normal Affect, Normal Mood Skin Exam: Warm, Dry, Intact, Normal Color Course - Vital Signs Last Recorded V/S: Last Vital Signs Temp 98 F 07/03/20 17:11 Pulse 58 L 07/03/20 17:11 Resp 16 07/03/20 17:11 BP 127/60 07/03/20 17:11 Pulse Ox 97 07/03/20 17:11 - Re-Assessments/Exams Free Text/Narrative Re-Assessment/Exam: 07/03/20 17:[address] patient on clindamycin for cellulitis of left fourth toe. Recommend follow-up with primary care physician or podiatry. Information provided. Return precautions were discussed. Departure - Departure Time of Disposition: 17:21 Disposition: Home, Self-Care 01 Condition: Good Clinical Impression: Cellulitis of toe of left foot - Discharge Information Prescriptions: clindamycin HCL [Clindamycin HCl] 150 mg PO TID 14 Days #126 capsule Instructions: Cellulitis, Adult Referrals: Asael Myers MD [Primary Care Provider] - Forms: ED Department Discharge Additional Instructions: The following information is given to patients seen in the emergency department who are being discharged to home. This information is to outline your options for follow-up care. We provide all patients seen in our emergency department with a follow-up referral. The need for follow-up, as well as the timing and circumstances, are variable depending upon the specifics of your emergency department visit. If you don't have a primary care physician on staff, we will provide you with a referral. We always advise you to contact your personal physician following an emergency department visit to inform them of the circumstance of the visit and for follow-up with them and/or the need for any referrals to a consulting specialist. The emergency department will also refer you to a specialist when appropriate. This referral assures that you have the opportunity for follow-up care with a specialist. All of these measure are taken in an effort to provide you with optimal care, which includes your follow-up. Under all circumstances we always encourage you to contact your private physician who remains a resource for coordinating your care. When calling for follow-up care, please make the office aware that this follow-up is from your recent emergency room visit. If for any reason you are refused follow-up, please contact the [facility] Emergency Department at and asked to speak to the emergency department charge nurse. Please follow up with your primary care physician. If you do not have a primary care physician, see below: [facility] [address] [place] [phone] [facility] [address] [place] [id number] [facility] [address] [place] [id number] Sepsis Event Note (ED) - Focused Exam Vital Signs: Vital Signs Temp Pulse Resp BP Pulse Ox 07/03/20 17:11 98 F 58 L 16 127/60 97
[2020-07-03 17:30] VITALS: BP 113/67; PULSE 60
== END 2020-07-03 17:31 | disposition home or self-care (01) ==
LOC: MW.ED 16:51
DX: E11.628 Type 2 diabetes mellitus with other skin complications (principal); L03.032 Cellulitis of left toe; I11.0 Hypertensive heart disease with heart failure; I50.9 Heart failure, unspecified; I48.91 Unspecified atrial fibrillation; E11.9 Type 2 diabetes mellitus without complications; K21.9 Gastro-esophageal reflux disease without esophagitis; Z86.718 Personal history of other venous thrombosis and embolism; Z79.01 Long term (current) use of anticoagulants; Z79.4 Long term (current) use of insulin; Z79.899 Other long term (current) drug therapy
CPT/HCPCS: 99283